=== PATIENT | male | born 1985 | race African-American/Black ===

== ENCOUNTER 2019-09-03 20:01 | Emergency (ER) | payer MEDICAID ==
[~2019-09-03] VITALS: Ht 193 cm; Wt 83.9 kg
[2019-09-03 20:04] VITALS: Ht 193 cm; Wt 83.9 kg
[2019-09-03 20:59] VITALS: BP 116/75
== END 2019-09-03 21:37 | disposition home or self-care (01) ==
LOC: ED 20:01
DX: G62.9 Polyneuropathy, unspecified (principal); M79.602 Pain in left arm

== ENCOUNTER 2019-10-06 21:52 | Emergency (ER) | payer MEDICAID ==
[~2019-10-06] VITALS: Ht 193 cm; Wt 74.8 kg
[2019-10-06 21:59] VITALS: BP 104/64; Ht 193 cm; Wt 74.8 kg
[2019-10-07 01:20] LABS: BASOPHIL % 0.9 % (0-2); PLATELET COUNT 190 x10^3mcL (130-400)
[2019-10-07 01:22] LABS: RED CELL DISTRIBUTION WIDTH 19.4 % (11.5-14.5)
[2019-10-07 01:52] LABS: CALCIUM 8.7 mg/dL (8.5-10.1); CARBON DIOXIDE 31.6 mmol/L (21-32); CHLORIDE SERUM 104 mmol/L (98-107); CREATININE SERUM 1.2 mg/dL (0.7-1.3); GFR1 > 60 mL/min; GLUCOSE SERUM 92 mg/dL (74-106); POTASSIUM SERUM 4.3 mmol/L (3.5-5.1); SODIUM SERUM 142 mmol/L (136-145)
== END 2019-10-07 03:23 | disposition home or self-care (01) ==
LOC: ED 21:52
PROVIDERS: Student in an Organized Health Care Education/Training Program
DX: R51 Headache (principal)
CPT/HCPCS: J0780

== ENCOUNTER 2020-03-10 08:41 | Emergency (ER) | payer MEDICAID ==
[~2020-03-10] VITALS: Ht 177.8 cm; Wt 81.6 kg
[2020-03-10 08:49] VITALS: Ht 177.8 cm; Wt 81.6 kg
[2020-03-10 13:16] VITALS: BP 122/74
== END 2020-03-10 13:17 | disposition home or self-care (01) ==
LOC: ED 08:41
DX: G40.909 Epilepsy, unspecified, not intractable, without status epilepticus (principal)